=== PATIENT | male | born 1995 | race Two or more races ===

== ENCOUNTER 2018-02-02 01:42 | Emergency (ER) | payer BC ==
[~2018-02-02] VITALS: Ht 175.3 cm; Wt 75.8 kg
[2018-02-02 01:46] VITALS: BP 128/65
[2018-02-02] MEDS ORDERED: ONDA8TAB9 PO (02:20)
[2018-02-02] MEDS ORDERED: DOXY100C43 PO (02:20)
[2018-02-02] MEDS ORDERED: DOXYCYCLINE 100MG CAPSULE PO STA (02:21)
[2018-02-02] MEDS ORDERED: ondansetron 4mg rapidly disintigrating tab PO ONE (02:25)
[2018-02-02 02:44] LABS: CLARITY,URINE CLEAR (Clear); COLOR,URINE YELLOW (Yellow); GLUCOSE, URINE NEGATIVE (Neg); KETONES,URINE NEGATIVE (Neg); LEUKOCYTE ESTERASE ,URINE NEGATIVE (Neg); NITRITES, URINE NEGATIVE (Neg); OCCULT BLOOD,URINE NEGATIVE (Neg); PROTEIN,URINE NEGATIVE (Neg); UROBILINOGEN,URINE 0.2 E.U/dL (0.2-1.0)
[2018-02-02 02:46] LABS: UA COLLECTION TYPE NON-SPECIFIED
== END 2018-02-02 02:50 | disposition home or self-care (01) ==
LOC: ER 01:43
DX: N50.811 Right testicular pain (principal)
CPT/HCPCS: 81003; 99283; P9612